=== PATIENT | female | born 1985 | race Asian ===

== ENCOUNTER 2017-04-17 20:51 | Emergency (ER) | payer OTHER ==
[~2017-04-17] VITALS: Ht 167.6 cm; Wt 74.8 kg
[2017-04-17 21:00] VITALS: BP 142/90
[2017-04-17 22:09] LABS: BILIRUBIN,URINE NEGATIVE (NEGATIVE); BLOOD, URINE 3+ (NEGATIVE); COLOR,URINE YELLOW (YELLOW); LEUKOCYTE ESTERASE ,URINE NEGATIVE (NEGATIVE); NITRITE, URINE NEGATIVE (NEGATIVE); UGLUCOSE NEGATIVE (NEGATIVE)
[2017-04-17 22:10] LABS: APPEARANCE,URINE CLEAR (CLEAR)
[2017-04-17 22:20] LABS: RBC,URINE 50-80 /HPF (0-5); WBC,URINE 0-5 (RARE) /HPF (0-5)
[2017-04-17 23:09] VITALS: BP 135/87
== END 2017-04-17 23:09 | disposition home or self-care (01) ==
LOC: MED 20:51
DX: O46.91 Antepartum hemorrhage, unspecified, first trimester (principal); Z3A.01 Less than 8 weeks gestation of pregnancy; Z88.0 Allergy status to penicillin
CPT/HCPCS: 36415; 76801; 81001; 81025; 84702; 87086; 99285; Q0092